=== PATIENT | female | born 1970 | race African-American/Black ===

== ENCOUNTER 2021-09-02 06:35 | Emergency (ER) | payer SELFPAY ==
[2021-09-02 06:36] VITALS: BP 154/92; PULSE 85; RESP 18; TEMP 36.6; O2SAT 100
[2021-09-02 06:48] VITALS: BP 154/92; PULSE 85; RESP 18; O2SAT 100
--- NOTE | 2021-09-02 07:11 | ECG_ITS ---
Measurements Intervals [place] Rate: 77 P: 53 ME: 176 QRS: 58 QRSD: 81 T: 22 QT: 390 QTc: 442 Interpretive Statements SINUS RHYTHM POSSIBLE LEFT ATRIAL ENLARGEMENT BORDERLINE ST-T WAVE ABNORMALITY- INFERIOR LEADS BORDERLINE ECG Electronically Signed On 09-02-2021 10:35:38 CDT by Bala Amaya D.O.
[2021-09-02] MEDS: NALOXONE HCL INJ 2 MG/2 ML AMP IV PUSH (07:25)
[2021-09-02 07:31] LABS: Basophils Absolute Auto 0.1 K/mm3 (0.0-0.1); Basophils Percent Auto 0.7 % (0.2-1.2); Eosinophils Absolute Auto 0.1 K/mm3 (0-0.3); Eosinophils Percent Auto 0.7 % (0-4.4); Hematocrit 43.5 % (37.0-47.0); Hemoglobin 13.6 g/dL (12.0-15.0); Immature Granulocyte Absolute 0.02 K/mm3 (0.00-0.031); Immature Granulocyte Percent A 0.2 % (0-0.5); Lymphocytes Percent Auto 45.8 % (18.3-44.2); Mean Corpuscular HGB Conc 31.3 g/dl (32-36); Mean Corpuscular Volume 86.5 fl (80-100); Mean Platelet Volume 9.3 fl (7.4-10.4); Monocytes Absolute Auto 0.7 K/mm3 (0.1-0.6); Monocytes Percent Auto 8.5 % (2.6-8.5); Neutrophils Absolute Auto 3.8 K/mm3 (1.3-6.7); Neutrophils Percent Auto 44.1 % (45.5-73.1); Platelet Count Result 273 k/mm3 (150-375); Red Blood Count 5.03 M/mm3 (4.2-5.4); Red Cell Distribution Width 14.8 % (11.5-14.5); White Blood Count 8.5 K/mm3 (4.5-10.0)
[2021-09-02 07:36] LABS: Appearance Urine Cloudy (Clear); Bilirubin Urine Negative (Negative); Blood Urine Negative (Negative); Color Urine Yellow (Yellow); Glucose Urine UA Negative (Negative); Ketones Urine Trace mg/dL (Negative); Leukocyte Esterase Ur Negative LEU/UL (Negative); Nitrate Urine Negative (Negative); Protein Urine Negative (Negative); Specific Grav Ur >= 1.030 (1.001-1.035); Urobilinogen Urine 0.2 mg/dL (<2.0); pH Urine 5.5 (5.0-9.0)
[2021-09-02 07:42] LABS: Bacteria Urine 1+ /hpf; Mucus Urine Rare /lpf; Squamous Epithelial Cell Urine Many /hpf (Few)
[2021-09-02 07:42] LABS: Alanine Aminotransferase 38 U/L (6-35); Albumin Level 4.3 g/dL (3.5-5.1); Alkaline Phosphatase 85 U/L (38-126); Anion Gap 8 mmol/L (8-16); Aspartate Amino Transferase 37 U/L (14-36); Bilirubin,Total 0.4 mg/dL (0.2-1.3); Blood Urea Nitrogen 14 mg/dL (7-17); Calcium 8.8 mg/dL (8.4-10.2); Carbon Dioxide 29 mmol/L (22-30); Chloride 101 mmol/L (98-107); Estimated Glomerular Filt Rate > 60; Glucose 145 mg/dL (65-110); Potassium 4.3 mmol/L (3.4-5.0); Sodium 138 mmol/L (137-145)
[2021-09-02 07:44] LABS: Add Urine Microscopic? YES
[2021-09-02 07:53] VITALS: BP 147/94; PULSE 87; RESP 17; O2SAT 99
[2021-09-02 07:54] LABS: Acetaminophen < 10 ug/mL (10-30); Ethanol < 10 mg/dL (<10); Salicylate < 1.0 mg/dL (2-20)
[2021-09-02] MEDS: ONDANSETRON INJ 4 MG/2 ML VIAL IV PUSH (08:02)
[2021-09-02 08:05] LABS: Amphetamine Screen Urine Negative (Negative); Barbiturate Screen Urine Negative (Negative); Benzodiazepines Screen Urine Negative (Negative); Cannabinoid Screen Urine Negative (Negative); Cocaine Screen Urine Negative (Negative); Methadone Screen Urine Negative (Negative); Opiate Screen Urine Positive (Negative); Phencyclidine Screen Urine Negative (Negative)
--- NOTE | 2021-09-02 09:40 | ED.GENADULT ---
HPI - General Adult General Chief complaint: Recheck/Abnormal Lab/Rx Stated complaint: took 3 Tylenols Time Seen by Provider: 09/02/21 07:07 History of Present Illness HPI narrative: Pt took some pills this morning thinking she was taking tylenol but now thins maybe she took percocet by accident and now she feels strange. Pt has not vomited but feels nauseated. Pt is very anxious about overdosing but is sure she did not take more than a few tabs max. Related Data Allergies Allergy/AdvReac Type Severity Reaction Status Date / Time iohexol Allergy Unknown Verified 09/02/21 06:47 [From contrast - CT, X-RAY] Review of Systems Review of Systems: All systems reviewed & are unremarkable except as noted in HPI and below Exam Const: General: healthy appearing Nutritional Appearance: well nourished Orientation/consciousness: patient oriented x3 Limitations: no limitations HENMT: Head: normal to inspection Throat: posterior oropharynx normal Eyes: Conjunctivae: conjunctivae normal Pupils: Equal, round and reactive pupils present EOM: EOMs intact bilaterally Direct Ophthalmoscopy: no photophobia Neck: Neck: normal visual inspection, no lymphadenopathy and no meningeal signs Resp: Effort & Inspection: normal respiratory effort Auscultation: clear to auscultation bilaterally Cardio: Rate: regular rate Rhythm: regular rhythm GI: GI Palp: Yes Soft to palpation Auscultation: normal bowel sounds Skin: General skin exam: normal color Rashes: no rashes Wounds: no wounds Neuro: General: patient oriented x3, moves all extremities and no focal motor deficits Cranial nerves: Yes Nystagmus not present Speech: normal speech Extrem: General: normal to inspection and no clubbing, cyanosis or edema Psych: Mental Status: mental status grossly normal Affect: Anxious affect present Attitude: cooperative Course Course Emergency Course: pt resting comfortable afer narcan (and after Gi episode). Awakens easily and comfortable going home Vital Signs Vital signs: Vital Signs Temperature 97.9 F 09/02/21 06:36 Pulse Rate 85 09/02/21 06:36 Respiratory Rate 18 09/02/21 06:36 Blood Pressure 154/92 H 09/02/21 06:36 Pulse Oximetry 100 09/02/21 06:36 Oxygen Delivery Room Air 09/02/21 06:36 Temperature 97.9 F 09/02/21 06:36 Pulse Rate 87 09/02/21 07:53 Respiratory Rate 17 09/02/21 07:53 Blood Pressure 147/94 H 09/02/21 07:53 Pulse Oximetry 99 09/02/21 07:53 Oxygen Delivery Room Air 09/02/21 06:36 Medical Decision Making Vital Signs Vital Signs: Vital Signs Temperature 97.9 F 09/02/21 06:36 Pulse Rate 85 09/02/21 06:36 Respiratory Rate 18 09/02/21 06:36 Blood Pressure 154/92 H 09/02/21 06:36 Pulse Oximetry 100 09/02/21 06:36 Oxygen Delivery Room Air 09/02/21 06:36 Temperature 97.9 F 09/02/21 06:36 Pulse Rate 87 09/02/21 07:53 Respiratory Rate 17 09/02/21 07:53 Blood Pressure 147/94 H 09/02/21 07:53 Pulse Oximetry 99 09/02/21 07:53 Oxygen Delivery Room Air 09/02/21 06:36 Lab Data Result diagrams: 09/02/21 07:16 09/02/21 07:16 Labs: Lab Results 09/02/21 09/02/21 09/02/21 Range/Units 07:16 07:16 07:16 WBC 8.5 (4.5-10.0) K/mm3 RBC 5.03 (4.2-5.4) M/mm3 Hgb 13.6 (12.0-15.0) g/dL Hct 43.5 (37.0-47.0) % MCV 86.5 (80-100) fl MCH 27.0 (26-34) pg MCHC 31.3 L (32-36) g/dl RDW 14.8 H (11.5-14.5) % Plt Count 273 (150-375) k/mm3 MPV 9.3 (7.4-10.4) fl Immature Gran % (Auto) 0.2 (0-0.5) % Neut % (Auto) 44.1 L (45.5-73.1) % Lymph % (Auto) 45.8 H (18.3-44.2) % Placer % (Auto) 8.5 (2.6-8.5) % Eos % (Auto) 0.7 (0-4.4) % Baso % (Auto) 0.7 (0.2-1.2) % Lymph # (Auto) 3.90 H (0.9-3.2) K/mm3 Placer # (Auto) 0.7 H (0.1-0.6) K/mm3 Eos # (Auto) 0.1 (0-0.3) K/mm3 Baso # (Auto) 0.1 (0.0-0.1) K/mm3 Abs Immat Gran (auto) 0.0
[2021-09-02 10:08] VITALS: BP 143/73; PULSE 74; RESP 16; O2SAT 100
== END 2021-09-02 10:10 | disposition home or self-care (01) ==
PROVIDERS: Emergency Provider Emergency Medicine
DX: T39.1X1A Poisoning by 4-Aminophenol derivatives, accidental (unintentional), initial encounter (principal)
CPT/HCPCS: 36415; 80053; 80307; 81001; 81025; 84443; 85025; 93005; 96374; 96375; 99284; J2310; J2405